=== PATIENT | male | born 1960 | race Caucasian/White ===

== ENCOUNTER 2017-03-12 01:30 | Outpatient (CLI) | payer BC | END 2017-03-12 01:31 | disposition home or self-care (01) | LOC: BICRAD 01:30 | PROVIDERS: ATTEND Chiropractor | DX: M54.5 Low back pain (principal); G89.29 Other chronic pain | CPT/HCPCS: 72100 ==

== ENCOUNTER 2020-05-22 08:11 | Outpatient (CLI) | payer BC ==
--- NOTE | 2020-05-22 09:46 | MRI ---
MR the lumbar spine without contrast: 05/22/2020 History: Lumbar radiculitis, low back pain radiating down both legs for 6 months COMPARISON: None available TECHNIQUE: Multiplanar multisequence MR images were obtained of lumbar spine without IV contrast FINDINGS: On the basis of 5 lumbar type vertebral bodies, conus medullaris terminates at theL1-2 level. Sagittal STIR imaging demonstrates no focal area of osseous marrow edema. T12-L1:There is bilateral facet hypertrophy, left greater than right. Intervertebral disc height and signal intensity appears within normal limits. There is no significant central canal stenosis. There is mild left neural foraminal stenosis. L1-2:There is bilateral facet hypertrophy. No significant central canal or neural foraminal stenosis. L2-3:There is disc space narrowing with disc desiccation and bilateral facet hypertrophy. Mild disc b ulge. Mild central canal stenosis and mild left neural foraminal stenosis. L3-4:There is prominent bilateral facet hypertrophy and hypertrophy of the ligamentum flavum with flu id within bilateral facet joints. There is disc space narrowing with disc desiccation and mild disc bulge. There is no significant neural foraminal stenosis. There is mild/moderate left lateral recess stenosis. L4-5:Prominent bilateral facet hypertrophy present with fluid within the left facet joint. There is m ild central canal stenosis and mild/moderate right lateral recess stenosis. Moderate right and mild left neural foraminal stenosis. L5-S1:Bilateral facet hypertrophy noted, right greater than left. There is moderate/severe bilateral neural foraminal stenosis, right greater than left. Mild central canal stenosis. Image retroperitoneal structures demonstratemild prominence of the intrarenal collecting system and r enal pelvis on the left, similar when compared to a prior abdominal/pelvic CT performed 06/27/2016.. IMPRESSION: Multilevel lumbar spine degenerative change as detailed above. Fluid within the facet joints within t he lower lumbar spine may be seen on the basis of instability and thus, flexion and extension radiographs may be beneficial.
== END 2020-05-22 08:12 | disposition home or self-care (01) ==
LOC: BICMRI 08:11
PROVIDERS: ATTEND Physician Assistant Medical
DX: M47.26 Other spondylosis with radiculopathy, lumbar region (principal); M47.817 Spondylosis without myelopathy or radiculopathy, lumbosacral region; M47.815 Spondylosis without myelopathy or radiculopathy, thoracolumbar region
CPT/HCPCS: 72148

== ENCOUNTER 2020-12-20 13:06 | Outpatient (CLI) | payer BC | END 2020-12-20 13:07 | disposition home or self-care (01) | LOC: BICRAD 13:06 | PROVIDERS: ATTEND Physician Assistant | DX: M53.3 Sacrococcygeal disorders, not elsewhere classified (principal); S32.9XXK Fracture of unspecified parts of lumbosacral spine and pelvis, subsequent encounter for fracture with nonunion; M54.5 Low back pain; M16.0 Bilateral primary osteoarthritis of hip | CPT/HCPCS: 72170 ==

== ENCOUNTER 2021-02-06 16:20 | Outpatient (CLI) | payer BC ==
[2021-02-06 16:56] LABS: Bilirubin Neg (Negative); Blood, Urine Negative (Negative); Clarity Clear (Clear); Glucose, Urine (Dipstick) >=1000 mg/dL (Negative); Ketone, Urine Negative (Negative); Leukocyte Negative (Negative); Nitrite Negative (Negative); Protein, Urine (Dipstick) 15 mg/dl (Neg-Trace)
[2021-02-06 17:00] LABS: #Eosinphils 0.3 10x3/uL (0.0-0.5); #Monocytes 0.5 10x3/uL (0.0-1.1); #Neutrophils 4.2 10x3/uL (1.5-8.4); %Basophils 0.4 % (0.0-2.0); %Eosinophils 3.9 % (0.0-6.0); %Monocytes 7.3 % (0.0-10.0); %Neutrophils 57.8 % (40.0-75.0); Hemoglobin 15.8 g/dL (13.5-17.5); Mean Corpuscular HGB CONC 33.3 g/dL (32.0-36.0); Mean Corpuscular Hemoglobin 29.9 pg (27.0-33.0); Mean Corpuscular Volume 89.8 fl (81.2-95.1); Mean Platelet Volume 10.8 fl (7.4-10.4); Platelet Count 149 10x3/uL (150-450); RBC Distribution Width 14.4 % (11.5-14.5); Red Blood Cell (RBC) Count 5.28 10x6/uL (4.32-5.72); White Blood Cell (WBC) Count 7.2 10x3/uL (3.5-10.5)
[2021-02-06 17:09] LABS: INR-International Normal Ratio 0.9; Prothrombin Time 10.5 sec (9.5-12.1)
[2021-02-06 17:16] LABS: Anion Gap 15 mmol/L (10-20); BUN (Urea Nitrogen) 14 mg/dL (8.4-25.7); Calc. Creatinine Clearance 0 mL/min (70-130); Calcium 9.2 mg/dL (7.8-10.44); Carbon Dioxide 22 mmol/L (22-29); Chloride 107 mmol/L (98-107); Glucose 231 mg/dL (70-105); Potassium 4.2 mmol/L (3.5-5.1); Sodium 140 mmol/L (136-145)
[2021-02-07 07:36] LABS: SARS-CoV-2 PCR by NAA Not Detected (NotDetected)
== END 2021-02-06 16:21 | disposition home or self-care (01) ==
LOC: LABBT 16:20
PROVIDERS: ATTEND Orthopaedic Surgery
DX: Z01.818 Encounter for other preprocedural examination (principal); M16.11 Unilateral primary osteoarthritis, right hip; Z20.822 Contact with and (suspected) exposure to COVID-19
CPT/HCPCS: 80048; 81003; 85025; 85610; 87081; 93005; 93010; U0003; U0005

== ENCOUNTER 2021-02-11 05:33 | Inpatient (IN) | payer BC ==
[2021-02-07 15:03] VITALS: BMI 35.9
[2021-02-11] MEDS ORDERED: Levofloxacin 500 mg/D5W 100 ml Premix Bag ONE (05:56)
[2021-02-11] MEDS ORDERED: Sodium Chloride 0.9% 100 ML ONE (05:56)
[2021-02-11] MEDS ORDERED: Tranexamic Acid 1,000 MG/10 ML VIAL ONE (05:56)
[2021-02-11] MEDS ORDERED: Vancomycin 1.5 GRAM/300 ML BAG 1.5 GM in Premix Bag 1 BAG IVPB SCH ×2 (06:00→20:00)
[2021-02-11] MEDS ORDERED: Fentanyl 100 MCG/2 ML VIAL ONE ×6 (06:13→10:07)
[2021-02-11] MEDS ORDERED: Midazolam HCl 2 mg/2 ml Vial ONE (06:39)
[2021-02-11] MEDS ORDERED: Dexamethasone 4 mg/ml Vial ONE (06:39)
[2021-02-11] MEDS ORDERED: Ondansetron PF 4 MG/2 ML Vial ONE (06:44)
[2021-02-11] MEDS ORDERED: diphenhydrAMINE 50 MG/ML VIAL ONE (06:44)
[2021-02-11] MEDS ORDERED: Lidocaine 1% PF 5 ML VIAL ONE (06:44)
[2021-02-11] MEDS ORDERED: PROPOFOL 200 MG/20 ML VIAL ONE (06:44)
[2021-02-11] MEDS ORDERED: Bupivacaine HCl 0.5%/Epinephrine 1:200,000/PF 30 ml Vial ONE (06:44)
[2021-02-11] MEDS ORDERED: Rocuronium Bromide 10 MG/ML (10ML VIAL) ONE (06:44)
[2021-02-11] MEDS ORDERED: Ketorolac Tromethamine 30 MG/ML VIAL ONE (06:44)
[2021-02-11] MEDS ORDERED: Glycopyrrolate 0.2 MG/ML 5 ML SYRINGE ONE (06:44)
[2021-02-11] MEDS ORDERED: HYDROcodone/Acetaminophen 10/325 mg Tablet PO PRN ×2 (06:51→06:53)
[2021-02-11] MEDS ORDERED: Fentanyl 100 MCG/2 ML VIAL SLOW IVP PRN (06:51)
[2021-02-11] MEDS ORDERED: CEFAZOLIN 2 GM in Premix Bag 1 BAG IVPB SCH (07:00)
[2021-02-11] MEDS ORDERED: Bupivacaine PF 0.5% 30 ML VIAL ONE (07:54)
[2021-02-11] MEDS ORDERED: Ondansetron HCl/PF 4 MG/2 ML Vial IVP PRN (08:14)
[2021-02-11] MEDS ORDERED: Promethazine HCl 25 MG/ML VIAL IVPB PRN (08:14)
[2021-02-11] MEDS ORDERED: HYDROmorphone 2 MG/ML VIAL SLOW IVP PRN (08:14)
[2021-02-11] MEDS ORDERED: Promethazine HCl 25 MG/ML VIAL IM PRN (08:14)
[2021-02-11] MEDS ORDERED: Meperidine HCl/PF 25 MG/ML VIAL ONE (08:44)
[2021-02-11] MEDS ORDERED: HYDROmorphone 0.5 MG/0.5 ML SYRINGE ONE (09:05)
[2021-02-11] MEDS: Hydrochlorothiazide 25 MG TAB PO SCH (10:45)
[2021-02-11] MEDS: Amlodipine 10 MG TAB PO SCH (10:46)
[2021-02-11] MEDS: HYDROcodone/Acetaminophen 10/325 mg Tablet PO PRN ×2 (11:02→21:34)
[2021-02-11] MEDS: Fenofibrate Nanocrystallized 145 MG TAB PO SCH (11:03)
[2021-02-11] MEDS: metFORMIN 500 MG TAB PO SCH ×2 (11:03→17:53)
[2021-02-11] MEDS: Sodium Chloride 0.9% 1,000 ML IV SCH ×2 (11:03→18:32)
[2021-02-11] MEDS: Atorvastatin Calcium 10 MG TAB PO SCH (11:03)
[2021-02-11] MEDS: Ketorolac Tromethamine 30 MG/ML VIAL IVP SCH ×2 (14:10→21:33)
[2021-02-12] MEDS: Ketorolac Tromethamine 30 MG/ML VIAL IVP SCH ×2 (03:13→08:33)
[2021-02-12] MEDS: Sodium Chloride 0.9% 1,000 ML IV SCH (03:15)
[2021-02-12 06:21] LABS: Mean Corpuscular HGB CONC 34.2 g/dL (32.0-36.0); Mean Corpuscular Hemoglobin 31.2 pg (27.0-31.0); Mean Corpuscular Volume 91.3 fL (78.0-98.0); Mean Platelet Volume 8.3 fL (7.4-10.4); Platelet Count 117 thou/uL (130-400); RBC Distribution Width 13.5 % (11.5-14.5); Red Blood Cell (RBC) Count 4.49 mill/uL (4.70-6.10); White Blood Cell (WBC) Count 8.9 thou/uL (4.8-10.8)
[2021-02-12 07:58] VITALS: BP 152/87; TEMP 98.8
[2021-02-12] MEDS: HYDROcodone/Acetaminophen 10/325 mg Tablet PO PRN (08:32)
[2021-02-12] MEDS: Amlodipine 10 MG TAB PO SCH (08:32)
[2021-02-12] MEDS: Atorvastatin Calcium 10 MG TAB PO SCH (08:32)
[2021-02-12] MEDS: Hydrochlorothiazide 25 MG TAB PO SCH (08:32)
[2021-02-12] MEDS: metFORMIN 500 MG TAB PO SCH (08:33)
[2021-02-12] MEDS: Fenofibrate Nanocrystallized 145 MG TAB PO SCH (08:38)
== END 2021-02-12 15:32 | disposition home or self-care (01) | DRG 470 ==
LOC: SDC 05:33 → SJJU 06:51
PROVIDERS: ADMIT Orthopaedic Surgery; ATTEND Orthopaedic Surgery
PROC: 0SR9039 Replacement of Right Hip Joint with Ceramic Synthetic Substitute, Cemented, Open Approach (ICD-10-PCS; principal; 2021-02-11)
DX: M16.11 Unilateral primary osteoarthritis, right hip (principal); Z20.822 Contact with and (suspected) exposure to COVID-19; E78.5 Hyperlipidemia, unspecified; I10 Essential (primary) hypertension; J30.2 Other seasonal allergic rhinitis; E11.9 Type 2 diabetes mellitus without complications; E66.9 Obesity, unspecified; Z88.0 Allergy status to penicillin; Z91.040 Latex allergy status; Z79.84 Long term (current) use of oral hypoglycemic drugs; Z79.899 Other long term (current) drug therapy; Z68.35 Body mass index [BMI] 35.0-35.9, adult
CPT/HCPCS: 36415; 85027; J1100; J1170; J1200; J1885; J1956; J2175; J2250; J2405; J2704; J3010; J3370; J3490; S0020

== ENCOUNTER 2021-04-29 14:20 | Outpatient (CLI) | payer BC ==
[2021-04-29 15:33] LABS: #Eosinphils 0.3 10x3/uL (0.0-0.5); #Neutrophils 4.4 10x3/uL (1.5-8.4); %Basophils 0.5 % (0.0-2.0); %Eosinophils 3.9 % (0.0-6.0); %Lymphocytes 31.7 % (18.0-47.0); %Monocytes 11.3 % (0.0-10.0); %Neutrophils 52.1 % (40.0-75.0); Hemoglobin 16.9 g/dL (13.5-17.5); Mean Corpuscular HGB CONC 33.3 g/dL (32.0-36.0); Mean Corpuscular Hemoglobin 29.6 pg (27.0-33.0); Mean Corpuscular Volume 88.9 fl (81.2-95.1); Mean Platelet Volume 11.4 fl (7.4-10.4); Platelet Count 162 10x3/uL (150-450); RBC Distribution Width 14.6 % (11.5-14.5); White Blood Cell (WBC) Count 8.4 10x3/uL (3.5-10.5)
[2021-04-29 15:47] LABS: Anion Gap 17 mmol/L (10-20); BUN (Urea Nitrogen) 16 mg/dL (8.4-25.7); Calc. Creatinine Clearance 0 mL/min (70-130); Carbon Dioxide 23 mmol/L (22-29); Chloride 103 mmol/L (98-107); Glucose 108 mg/dL (70-105); Potassium 4.5 mmol/L (3.5-5.1); Sodium 138 mmol/L (136-145)
[2021-04-30 15:38] LABS: SARS-CoV-2 PCR by NAA Not Detected (NotDetected)
== END 2021-04-29 14:21 | disposition home or self-care (01) ==
LOC: LABBT 14:20
PROVIDERS: ATTEND Orthopaedic Surgery
DX: Z01.818 Encounter for other preprocedural examination (principal); M16.12 Unilateral primary osteoarthritis, left hip; Z20.822 Contact with and (suspected) exposure to COVID-19
CPT/HCPCS: 80048; 85025; 87081; U0003; U0005

== ENCOUNTER 2021-05-02 06:34 | Inpatient (IN) | payer BC ==
[2021-04-25 12:10] VITALS: BMI 37.2
[2021-05-02] MEDS ORDERED: Sodium Chloride 0.9% 100 ML ONE (07:14)
[2021-05-02] MEDS ORDERED: Tranexamic Acid 1,000 MG/10 ML VIAL ONE (07:14)
[2021-05-02] MEDS ORDERED: Vancomycin 1.5 GRAM/300 ML BAG 1.5 GM in Premix Bag 1 BAG IVPB SCH (07:15)
[2021-05-02] MEDS ORDERED: Fentanyl 100 MCG/2 ML VIAL ONE ×4 (08:43→13:15)
[2021-05-02] MEDS ORDERED: Midazolam HCl 2 mg/2 ml Vial ONE (08:43)
[2021-05-02] MEDS ORDERED: Fentanyl 100 MCG/2 ML VIAL SLOW IVP PRN (09:47)
[2021-05-02] MEDS ORDERED: Ondansetron PF 4 MG/2 ML Vial IVP PRN (09:47)
[2021-05-02] MEDS ORDERED: HYDROcodone/Acetaminophen 10/325 mg Tablet PO PRN (09:47)
[2021-05-02] MEDS ORDERED: Acetaminophen 325 MG TAB PO PRN (09:47)
[2021-05-02] MEDS ORDERED: Promethazine HCl 25 MG/ML VIAL IM PRN ×2 (09:47→12:38)
[2021-05-02] MEDS ORDERED: Zolpidem Tartrate 5 MG TAB PO PRN (09:47)
[2021-05-02] MEDS ORDERED: diphenhydrAMINE 25 MG CAP PO PRN (09:47)
[2021-05-02] MEDS ORDERED: Propofol 1,000 MG/100 ML VIAL IV ONE ×2 (10:16→10:17)
[2021-05-02] MEDS ORDERED: ceFAZolin 2 GM/Dextrose 50 ML IVPB ONE (10:17)
[2021-05-02] MEDS ORDERED: Bupivacaine PF 0.5% 30 ML VIAL ONE (11:08)
[2021-05-02] MEDS ORDERED: Ondansetron HCl/PF 4 MG/2 ML Vial IVP PRN (12:38)
[2021-05-02] MEDS ORDERED: Promethazine HCl 25 MG/ML VIAL IVPB PRN (12:38)
[2021-05-02] MEDS: metFORMIN 500 MG TAB PO SCH (15:27)
[2021-05-02] MEDS: Ketorolac Tromethamine 30 MG/ML VIAL IM SCH ×2 (15:27→21:16)
[2021-05-02] MEDS: Sodium Chloride 0.9% 1,000 ML IV SCH ×2 (15:28→21:15)
[2021-05-02] MEDS: ceFAZolin 2 GM/Dextrose 50 ML 2 GM in Premix Bag 1 BAG IVPB SCH ×2 (15:29→15:47)
[2021-05-02] MEDS: Aspirin 81 mg Enteric Coated Tablet PO SCH (20:40)
[2021-05-02] MEDS: Senokot S 8.6-50 MG TAB PO SCH (20:40)
[2021-05-02] MEDS: Ferrous Gluconate 324 MG TAB PO SCH (20:40)
[2021-05-03] MEDS: HYDROcodone/Acetaminophen 10/325 mg Tablet PO PRN ×2 (03:23→08:55)
[2021-05-03] MEDS: Ketorolac Tromethamine 30 MG/ML VIAL IM SCH (05:05)
[2021-05-03] MEDS: Sodium Chloride 0.9% 1,000 ML IV SCH (05:18)
[2021-05-03 07:56] LABS: Hemoglobin 13.1 g/dL (14.0-18.0); Mean Corpuscular HGB CONC 34.4 g/dL (32.0-36.0); Mean Corpuscular Hemoglobin 31.2 pg (27.0-31.0); Mean Corpuscular Volume 90.6 fL (78.0-98.0); Mean Platelet Volume 8.7 fL (7.4-10.4); Platelet Count 104 thou/uL (130-400); RBC Distribution Width 13.6 % (11.5-14.5); Red Blood Cell (RBC) Count 4.21 mill/uL (4.70-6.10); White Blood Cell (WBC) Count 7.1 thou/uL (4.8-10.8)
[2021-05-03] MEDS: Senokot S 8.6-50 MG TAB PO SCH (08:49)
[2021-05-03] MEDS: Aspirin 81 mg Enteric Coated Tablet PO SCH (08:49)
[2021-05-03] MEDS: metFORMIN 500 MG TAB PO SCH (08:50)
[2021-05-03] MEDS: Ferrous Gluconate 324 MG TAB PO SCH (08:50)
[2021-05-03] MEDS ORDERED: Atorvastatin Calcium 10 MG TAB PO SCH (09:00)
[2021-05-03] MEDS ORDERED: Multivitamin W/ Minerals 1 TAB PO SCH (09:00)
[2021-05-03] MEDS ORDERED: Fenofibrate Nanocrystallized 145 MG TAB PO SCH (09:00)
[2021-05-03] MEDS ORDERED: Hydrochlorothiazide 25 MG TAB PO SCH (09:00)
[2021-05-03] MEDS ORDERED: Amlodipine 10 MG TAB PO SCH (09:00)
[2021-05-03 12:30] VITALS: TEMP 98.2
[2021-05-03 12:59] VITALS: BP 145/73
== END 2021-05-03 15:58 | disposition home or self-care (01) | DRG 470 ==
LOC: SDC 06:34 → SJJU 09:47
PROVIDERS: ADMIT Orthopaedic Surgery; ATTEND Orthopaedic Surgery
PROC: 0SRB0J9 Replacement of Left Hip Joint with Synthetic Substitute, Cemented, Open Approach (ICD-10-PCS; principal; 2021-05-02)
DX: M16.12 Unilateral primary osteoarthritis, left hip (principal); Z20.822 Contact with and (suspected) exposure to COVID-19; I10 Essential (primary) hypertension; E78.5 Hyperlipidemia, unspecified; J30.2 Other seasonal allergic rhinitis; E11.9 Type 2 diabetes mellitus without complications; Z91.040 Latex allergy status; Z90.49 Acquired absence of other specified parts of digestive tract; Z98.890 Other specified postprocedural states; Z79.84 Long term (current) use of oral hypoglycemic drugs; Z79.899 Other long term (current) drug therapy
CPT/HCPCS: 36415; 36416; 80048; 85025; 85027; 87081; J0690; J1885; J2250; J2704; J3010; J3370; J3490; S0020; U0003; U0005

== ENCOUNTER 2022-05-25 11:41 | Emergency (ER) | payer BC ==
[~2022-05-25 11:41] MED LIST: Iopamidol-370 76% 500 ML 1 ML ONE
[2022-05-25 12:19] LABS: Albumin 4.2 g/dL (3.5-5.0); Hemoglobin 16.8 g/dL (14.0-18.0); Mean Corpuscular HGB CONC 35.8 g/dL (32.0-36.0); Mean Corpuscular Volume 92.2 fl (78.0-98.0); RBC Distribution Width 13.2 % (11.5-14.5); Red Blood Cell (RBC) Count 5.09 mill/uL (4.70-6.10); White Blood Cell (WBC) Count 5.9 10x3/uL (4.8-10.8)
[2022-05-25 12:20] LABS: Chloride 109 mmol/L (98-107); Sodium 136 mmol/L (136-145)
[2022-05-25 12:21] LABS: Calcium 9.4 mg/dL (7.8-10.44); Glucose 133 mg/dL (70-105)
[2022-05-25 12:22] LABS: Globulin 3.4 g/dL (2.4-3.5); Protein, Total 7.6 g/dL (6.0-8.3)
[2022-05-25 12:23] LABS: Anion Gap 12 mmol/L (10-20); Bilirubin, Total 0.8 mg/dL (0.2-1.2); Carbon Dioxide 19 mmol/L (22-29)
[2022-05-25 12:24] LABS: Alkaline Phosphatase 64 U/L (40-110)
[2022-05-25 12:25] LABS: Calc. Creatinine Clearance 0 mL/min (70-130); Estimated GFR 104
[2022-05-25 12:26] LABS: AST (SGOT) 41 U/L (5-34); BUN (Urea Nitrogen) 15 mg/dL (8.4-25.7)
[2022-05-25] MEDS ORDERED: Ondansetron PF 4 MG/2 ML Vial ONE (12:26)
[2022-05-25] MEDS ORDERED: Morphine 4 MG/ML VIAL ONE (12:26)
[2022-05-25 12:27] LABS: ALT (SGPT) 43 U/L (8-55); Magnesium 2.3 mg/dL (1.6-2.6)
[2022-05-25 12:28] LABS: Lipase 24 U/L (8-78)
[2022-05-25 12:34] LABS: Bilirubin Negative (Negative); Blood, Urine Negative (Negative); Clarity Clear (Clear); Glucose, Urine (Dipstick) Normal (Negative); Ketone, Urine Negative (Negative); Leukocyte Negative Leu/uL (Negative); Nitrite Negative (Negative); Protein, Urine (Dipstick) Negative (Neg-Trace); Specific Gravity, Urine 1.028 (1.002-1.036); Urobilinogen Normal mg/dL (Less than 2); pH, Urine 5.5 (5.0-9.0)
[2022-05-25 12:37] LABS: #Basophils 0.1 thou/uL (0.0-0.2); #Eosinphils 0.2 thou/uL (0.0-0.7); #Lymphocytes 1.6 thou/uL (1.20-3.40); #Monocytes 0.5 thou/uL (0.11-0.59); #Neutrophils 3.5 thou/uL (1.40-6.50); %Basophils 1.5 % (0.0-1.0); %Lymphocytes 27.3 % (21.0-51.0); %Monocytes 8.2 % (0.0-10.0); Large Platelets SLIGHT; MDiff Complete? YES; Mean Platelet Volume 9.5 fL (7.4-10.4); Platelet Count 87 10x3/uL (130-400); Platelet Morphology Comment Appears Decreased; RBC Morphology Normal
== END 2022-05-25 13:26 | disposition home or self-care (01) ==
LOC: ERS 11:41
DX: R10.31 Right lower quadrant pain (principal); E11.9 Type 2 diabetes mellitus without complications; E78.2 Mixed hyperlipidemia; I10 Essential (primary) hypertension
CPT/HCPCS: 71045; 74177; 80053; 81003; 83690; 83735; 84484; 85025; 93005; 96374; 96375; J2270; J2405; Q9967

== ENCOUNTER 2023-04-23 16:08 | Outpatient (CLI) | payer BC | END 2023-04-23 16:09 | disposition home or self-care (01) | LOC: SCSRAD 16:08 | PROVIDERS: ATTEND Physician Assistant | DX: S29.9XXA Unspecified injury of thorax, initial encounter (principal) ==

== ENCOUNTER 2023-12-17 05:49 | Day surgery (SDC) | payer BC ==
[2023-12-14 13:50] VITALS: BMI 33.7
[2023-12-17] MEDS ORDERED: Nitroglycerin 50 MG/250 ML BOT 0 ML ONE (07:08)
[2023-12-17] MEDS ORDERED: fentaNYL 50 mcg/mL 1 mL Vial ONE (07:08)
[2023-12-17] MEDS ORDERED: Midazolam HCl 2 mg/2 ml Vial ONE (07:08)
[2023-12-17] MEDS ORDERED: Heparin 10,000 UNITS/ 10 ML VIAL ONE (07:08)
[2023-12-17] MEDS ORDERED: Protamine Sulfate 50 MG/5 ML VIAL ONE (08:04)
[2023-12-17] MEDS ORDERED: Iopamidol 370 76% 100 ML VIAL ONE (11:08)
== END 2023-12-17 16:07 | disposition home or self-care (01) ==
LOC: SDC 05:49
PROVIDERS: ATTEND Internal Medicine Cardiovascular Disease
PROC: 4A023N7 Measurement of Cardiac Sampling and Pressure, Left Heart, Percutaneous Approach (ICD-10-PCS; principal; 2023-12-17)
DX: R94.39 Abnormal result of other cardiovascular function study (principal); R07.89 Other chest pain; I45.10 Unspecified right bundle-branch block; I10 Essential (primary) hypertension; E11.9 Type 2 diabetes mellitus without complications; E78.1 Pure hyperglyceridemia; E78.5 Hyperlipidemia, unspecified; Z88.0 Allergy status to penicillin; Z88.1 Allergy status to other antibiotic agents; Z79.82 Long term (current) use of aspirin; Z79.84 Long term (current) use of oral hypoglycemic drugs; Z79.899 Other long term (current) drug therapy
CPT/HCPCS: 85347; 93458; 99152; C1769; J1644; J2250; J2720; J3010

== ENCOUNTER 2024-03-29 07:38 | Outpatient (CLI) | payer BC | END 2024-03-29 07:39 | disposition home or self-care (01) | LOC: CT 07:38 | PROVIDERS: ATTEND Family Medicine | DX: E78.1 Pure hyperglyceridemia (principal); R19.4 Change in bowel habit; D69.6 Thrombocytopenia, unspecified; R74.01 Elevation of levels of liver transaminase levels; N20.0 Calculus of kidney | CPT/HCPCS: 74178 ==

== ENCOUNTER 2024-03-29 12:53 | Emergency (ER) | payer BC ==
[2024-03-29] MEDS ORDERED: Ketorolac Tromethamine 30 MG (1 mL) VIAL ONE (13:56)
[2024-03-29] MEDS ORDERED: Ondansetron ODT 4 MG TAB ONE (13:56)
[2024-03-29] MEDS ORDERED: Ondansetron PF 4 MG/2 ML Vial ONE (14:10)
[2024-03-29 14:11] LABS: #Basophils 0.03 10x3/uL (0.0-0.2); %Basophils 0.4 % (0.0-1.0); %Eosinophils 3.2 % (0.0-10.0); %Lymphocytes 24.2 % (21.0-51.0); %Monocytes 9.4 % (0.0-10.0); %Neutrophils 62.4 % (42.0-75.0); Hematocrit 48.4 % (42.0-52.0); Hemoglobin 16.9 g/dL (14.0-18.0); Mean Corpuscular HGB CONC 34.9 g/dL (32.0-36.0); Mean Corpuscular Hemoglobin 30.7 pg (27.0-31.0); Mean Corpuscular Volume 87.8 fL (78.0-98.0); Mean Platelet Volume 10.7 fL (7.4-10.4); Platelet Count 125 10x3/uL (130-400); Red Blood Cell (RBC) Count 5.51 mill/uL (4.70-6.10)
[2024-03-29 14:26] LABS: ALT (SGPT) 45 U/L (8-55); AST (SGOT) 40 U/L (5-34); Alkaline Phosphatase 71 U/L (40-110); Anion Gap 15 mmol/L (10-20); BUN (Urea Nitrogen) 15 mg/dL (8.4-25.7); Calc. Creatinine Clearance 0 mL/min (70-130); Calcium 9.4 mg/dL (7.8-10.44); Carbon Dioxide 22 mmol/L (23-31); Chloride 107 mmol/L (98-107); Estimated GFR 100; Globulin 3.8 g/dL (2.4-3.5); Glucose 109 mg/dL (80-115); Lipase 19 U/L (8-78); Potassium 4.1 mmol/L (3.5-5.1); Protein, Total 7.8 g/dL (5.8-8.1); Sodium 140 mmol/L (136-145)
[2024-03-29 14:32] LABS: Platelet Adequacy Comment Platelets Decreased
[2024-03-29 14:50] LABS: Bacteria/HPF None Seen HPF (None Seen); Bilirubin Negative (Negative); Blood, Urine Negative (Negative); CAUTI Indications for Culture Alt mental st,lethar; Clarity Clear (Clear); Glucose, Urine (Dipstick) Normal (Negative); Ketone, Urine Negative (Negative); Leukocyte Negative Leu/uL (Negative); Nitrite Negative (Negative); Protein, Urine (Dipstick) 10 mg/dL (Neg-Trace); RBC/HPF 0-3 HPF (0-3); Squamous Epithelial None Seen HPF (0-3); Urobilinogen Normal mg/dL (Less than 2); WBC/HPF None Seen HPF (0-3)
[2024-03-29 14:51] LABS: Specific Gravity, Urine 1.055 (1.002-1.036)
[2024-03-29 14:52] LABS: Urine Culture Reflex No No
== END 2024-03-29 15:51 | disposition home or self-care (01) ==
LOC: ERS 12:53
DX: R10.13 Epigastric pain (principal); E11.9 Type 2 diabetes mellitus without complications; I10 Essential (primary) hypertension; E78.00 Pure hypercholesterolemia, unspecified; Z79.899 Other long term (current) drug therapy; Z79.84 Long term (current) use of oral hypoglycemic drugs
CPT/HCPCS: 36415; 80053; 81001; 83690; 85025; 93005; 96374; 96375; J1885; J2405; Q0162

== ENCOUNTER 2025-02-15 10:53 | Outpatient (CLI) | payer BC | END 2025-02-15 10:54 | disposition home or self-care (01) | LOC: SCSRAD 10:53 | PROVIDERS: ATTEND Nurse Practitioner Family | DX: M79.672 Pain in left foot (principal); M77.8 Other enthesopathies, not elsewhere classified; M20.12 Hallux valgus (acquired), left foot; S92.342K Displaced fracture of fourth metatarsal bone, left foot, subsequent encounter for fracture with nonunion; Z87.81 Personal history of (healed) traumatic fracture ==